=== PATIENT | female | born 1930 | race Caucasian/White ===

== ENCOUNTER 2017-02-22 11:51 | Emergency (ER) | payer MEDICARE, MEDICAID ==
[~2017-02-22] VITALS: Ht 149.8 cm; Wt 43.1 kg
[~2017-02-22 11:51] MED LIST: ACETAMINOPHEN PO; ACETAMINOPHEN-H1 TA2 PO; ACETAMINOPHEN325 M3 PO; AMITIZA8 MCG PO; AMITRIPTYLINE H10 M1 PO; ASPIRIN ADULT L81 M1 PO; ASPIRIN81 M1 PO; ATIVAN0.5 MG PO; B COMPLEX1 EACH PO; B12,B-12,B 12500 MC1 PO; BACTROBAN22 TP; CALCIUM 500 MG1 EAC1 PO; CALCIUM CARBON500 M1 PO; CEFTRIAXONE1 GM IJ; CIPRO250 MG PO; CIPRO500 MG PO; COZAAR100 MG PO; DIFLUCAN100 MG PO; DOC-Q-LAX 50 MG1 TAB PO; DOCUSATE SODIU100 M2 PO; DOXYCYCLINE50 MG PO; DULCOLAX10 M1 RC; EVISTA60 MG PO; FEROSUL325 MG PO; FERROUS SULFAT324 M1 PO; FLAGYL500 MG PO; FLOMAX0.4 MG; HYDR25T PO; HYDROCODONE BIT1 T11 PO; HYDROCODONE PO; HYDRODIURIL25 MG PO; HYDROMORPH0.5 MG/0.5 IV; LIDODERM 5% PATC1 EA PO; LINZESS290 MC1 PO; LORAZEPAM0.5 MG PO; LOW DOSE ASPIRI81 MG PO; MAPAP325 MG PO; MECLIZINE HCL25 M2 PO; MECLIZINE25 MG PO; METAMUCIL PO; MIRALAX17 GM PO; MOVANTIK12.5 MG PO; Meclizine25 MG PO; NITROFURANTOIN100 MG PO; OMEPRAZOLE20 M2 PO; OMEPRAZOLE40 MG PO; OSTEO-BI-FLEX 21 TAB PO; OXYCODONE HCL10 M1 PO; PANTOPRAZOLE SO40 MG PO; PERCOCET 325 MG1 TA2 PO; PERCOCET 325 MG1 TAB PO; PREMARIN V0.625 MG/G V; PRILOSEC20 M1; PRILOSEC20 MG PO; PROTONIX40 MG PO; PYRIDIUM200 MG PO; REGLAN10 MG PO; SENNA8.6 M2 PO; TRANSDERM0.33 MG/24 T; VERAPAMIL HCL120 MG PO; VERAPAMIL HCL40 MG PO; VIACTIV CALCIUM1 CTB PO; VICODIN 5/500 505 MG PO; ZITHROMAX500 MG IV
[2017-02-22 12:51] LABS: BASO % 0.6 % (0.0-1.0); HEMATOCRIT 38.3 % (37.0-47.0); HEMOGLOBIN 12.5 g/dl (12.0-16.0); LYMPH # 0.8 10*3/uL (1.3-4.4); MEAN CELL VOLUME 92.3 fl (81.0-99.0); MEAN CORPUSCULAR HGB 30.1 pg (27.0-31.0); MEAN CORPUSCULAR HGB CONC 32.6 g/dl (33.0-37.0); MEAN PLATELET VOLUME 9.3 fl (9.6-12.3); MONO # 0.4 10*3/uL (0.1-1.0); MONO % 5.9 % (3.0-9.0); NEUT # 5.8 10*3/uL (2.3-7.9); NEUT % 82.2 % (47.0-73.0); PLATELET COUNT AUTOMATED 238 10*3/uL (130-400); RED BLOOD COUNT 4.15 10*6/uL (4.10-5.10); RED CELL DISTRI WIDTH 12.8 % (0-14.5)
[2017-02-22 13:08] LABS: BILIRUBIN NEGATIVE (NEGATIVE); BLOOD 2+ (NEGATIVE); CLARITY CLEAR (CLEAR); COLOR YELLOW (YELLOW); GLUCOSE NEGATIVE (NEGATIVE); KETONE 1+ (NEGATIVE); LEUKO ESTERASE NEGATIVE (NEGATIVE); NITRITE NEGATIVE (NEGATIVE); PH 7.5 (5.0-9.0); SPECIFIC GRAVITY 1.015 (1.005-1.030)
[2017-02-22 13:13] LABS: BUN 11 mg/dl (7-24); CHLORIDE 104 mmol/L (98-107); CREATININE 0.62 mg/dL (0.55-1.02); POTASSIUM 3.8 mmol/L (3.5-5.1); SODIUM 140 mmol/L (136-145)
[2017-02-22 13:17] LABS: RBC 31-40 rbc/hpf (0-2)
== END 2017-02-22 13:50 ==
LOC: ED 11:51
PROVIDERS: Emergency Medicine
DX: M25.421 Effusion, right elbow (principal); R07.81 Pleurodynia; F41.9 Anxiety disorder, unspecified; J45.909 Unspecified asthma, uncomplicated; K21.9 Gastro-esophageal reflux disease without esophagitis; I10 Essential (primary) hypertension; R73.9 Hyperglycemia, unspecified; M19.90 Unspecified osteoarthritis, unspecified site; Z90.49 Acquired absence of other specified parts of digestive tract; Z90.710 Acquired absence of both cervix and uterus; Z88.0 Allergy status to penicillin; Z88.2 Allergy status to sulfonamides; Z88.8 Allergy status to other drugs, medicaments and biological substances; Z91.041 Radiographic dye allergy status; Z79.899 Other long term (current) drug therapy; Z79.82 Long term (current) use of aspirin

== ENCOUNTER 2017-07-25 02:59 | Inpatient (IN) | payer MEDICARE, MEDICAID ==
[~2017-07-25] VITALS: Ht 137.1 cm; Wt 40.5 kg
[2017-07-25] VITALS (10 sets, daily range): BP systolic 102–165; BP diastolic 51–84
[2017-07-25] MEDS ORDERED: LACTULOSE10 GM/151 PO (03:33)
[2017-07-25 03:34] LABS: BASO # 0.1 10*3/uL (0.0-0.1); BASO % 0.5 % (0.0-1.0); EOS # 0.1 10*3/uL (0.0-0.4); EOS % 0.6 % (1.0-4.0); LYMPH % 10.1 % (27.0-41.0); MEAN CORPUSCULAR HGB 30.2 pg (27.0-31.0); MEAN CORPUSCULAR HGB CONC 32.4 g/dl (33.0-37.0); MEAN PLATELET VOLUME 9.3 fl (9.6-12.3); MONO # 0.6 10*3/uL (0.1-1.0); MONO % 5.8 % (3.0-9.0); NEUT # 7.9 10*3/uL (2.3-7.9); NEUT % 82.7 % (47.0-73.0); PLATELET COUNT AUTOMATED 196 10*3/uL (130-400); RED BLOOD COUNT 3.98 10*6/uL (4.10-5.10); RED CELL DISTRI WIDTH 12.5 % (0-14.5); WHITE BLOOD COUNT 9.5 10*3/uL (4.8-10.8)
[2017-07-25] MEDS ORDERED: LASIX20 MG PO (03:34)
[2017-07-25] MEDS ORDERED: MILK OF MA400 MG/5 M PO (03:37)
[2017-07-25] MEDS ORDERED: MIRALAX17 GM PO (03:37)
[2017-07-25] MEDS ORDERED: OMEPRAZOLE20 M2 PO (03:38)
[2017-07-25] MEDS ORDERED: OXYCODONE HCL15 MG PO ×2 (03:39→11:54)
[2017-07-25] MEDS ORDERED: REMERON15 M2 PO (03:39)
[2017-07-25 03:50] LABS: ALBUMIN 2.9 gm/dl (3.1-4.5); ALKALINE PHOSPHATASE 62 U/L (45-117); BUN 19 mg/dl (7-24); CHLORIDE 106 mmol/L (98-107); CREATININE 0.62 mg/dL (0.55-1.02); LIPASE 73 U/L (73-393); POTASSIUM 3.5 mmol/L (3.5-5.1); SGOT/AST 11 IU/L (3-35); SGPT/ALT 11 U/L (12-78); SODIUM 144 mmol/L (136-145); TOTAL PROTEIN 6.4 gm/dL (6.4-8.2)
[2017-07-25 03:52] LABS: TROPONIN I < 0.015 ng/ml (<0.045)
[2017-07-25 05:12] LABS: BILIRUBIN NEGATIVE (NEGATIVE); BLOOD 1+ (NEGATIVE); CLARITY CLEAR (CLEAR); COLOR YELLOW (YELLOW); GLUCOSE NEGATIVE (NEGATIVE); KETONE NEGATIVE (NEGATIVE); LEUKO ESTERASE NEGATIVE (NEGATIVE); NITRITE NEGATIVE (NEGATIVE); PH 5.5 (5.0-9.0); UROBILINOGEN 0.2 E.U./dl (0.2-1.0)
[2017-07-25] MEDS ORDERED: ACETAMINOPHEN325 M2 PO (08:25)
[2017-07-25] MEDS ORDERED: ASPIR LOW81 MG PO (08:26)
[2017-07-25] MEDS ORDERED: ARTIFICIAL TEAR15 M1 OU (08:26)
[2017-07-25] MEDS ORDERED: ATIVAN0.5 MG PO ×2 (08:27→11:54)
[2017-07-25] MEDS ORDERED: BIOFREEZE118 ML T (08:27)
[2017-07-25] MEDS ORDERED: DOCUSATE SODIU100 M2 PO (08:28)
[2017-07-25] MEDS ORDERED: DULCOLAX10 M1 R (08:29)
[2017-07-25] MEDS ORDERED: B121000 MCG/1 IM (08:32)
[2017-07-25] MEDS ORDERED: Zofran4 MG SL (08:33)
[2017-07-25] MEDS ORDERED: DAILY VITAMIN1 EAC1 PO (08:33)
== END 2017-07-25 13:48 | DRG 641 ==
LOC: ED 02:59 → EDHOLD 05:59 → 5E 06:09
PROVIDERS: Emergency Medicine Emergency Medical Services
DX: E86.0 Dehydration (principal); E44.0 Moderate protein-calorie malnutrition; R00.1 Bradycardia, unspecified; R00.0 Tachycardia, unspecified; Z68.1 Body mass index [BMI] 19.9 or less, adult; Z51.5 Encounter for palliative care; F41.9 Anxiety disorder, unspecified; J45.909 Unspecified asthma, uncomplicated; K59.00 Constipation, unspecified; K21.9 Gastro-esophageal reflux disease without esophagitis; I10 Essential (primary) hypertension; M19.90 Unspecified osteoarthritis, unspecified site; M81.0 Age-related osteoporosis without current pathological fracture; Z66 Do not resuscitate; R42 Dizziness and giddiness; Z90.49 Acquired absence of other specified parts of digestive tract; Z90.710 Acquired absence of both cervix and uterus; Z82.49 Family history of ischemic heart disease and other diseases of the circulatory system; Z83.3 Family history of diabetes mellitus; Z79.82 Long term (current) use of aspirin; Z87.440 Personal history of urinary (tract) infections; Z79.899 Other long term (current) drug therapy; Z88.0 Allergy status to penicillin; Z88.2 Allergy status to sulfonamides; Z88.8 Allergy status to other drugs, medicaments and biological substances; Z91.041 Radiographic dye allergy status; Z82.3 Family history of stroke; Z86.73 Personal history of transient ischemic attack (TIA), and cerebral infarction without residual deficits; Z80.0 Family history of malignant neoplasm of digestive organs

== ENCOUNTER 2017-08-03 08:53 | Emergency (ER) | payer MEDICARE, MEDICAID ==
[~2017-08-03] VITALS: Ht 149.8 cm; Wt 43.1 kg
[~2017-08-03 08:53] MED LIST changes: +ACETAMINOPHEN325 M2 PO; +ARTIFICIAL TEAR15 M1 OU; +ASPIR LOW81 MG PO; +B121000 MCG/1 IM; +BIOFREEZE118 ML T; +DAILY VITAMIN1 EAC1 PO; +DULCOLAX10 M1 R; +LACTULOSE10 GM/151 PO; +LASIX20 MG PO; +MILK OF MA400 MG/5 M PO; +OXYCODONE HCL15 MG PO; +REMERON15 M2 PO; +Zofran4 MG SL
[2017-08-03 09:27] LABS: BASO # 0.1 10*3/uL (0.0-0.1); BASO % 1.1 % (0.0-1.0); EOS # 0.1 10*3/uL (0.0-0.4); EOS % 1.1 % (1.0-4.0); HEMATOCRIT 38.1 % (37.0-47.0); HEMOGLOBIN 12.3 g/dl (12.0-16.0); LYMPH % 18.5 % (27.0-41.0); MEAN CELL VOLUME 92.9 fl (81.0-99.0); MEAN CORPUSCULAR HGB CONC 32.3 g/dl (33.0-37.0); MEAN PLATELET VOLUME 9.5 fl (9.6-12.3); MONO # 0.4 10*3/uL (0.1-1.0); MONO % 7.7 % (3.0-9.0); NEUT # 3.8 10*3/uL (2.3-7.9); NEUT % 71.2 % (47.0-73.0); PLATELET COUNT AUTOMATED 236 10*3/uL (130-400); RED CELL DISTRI WIDTH 12.3 % (0-14.5); WHITE BLOOD COUNT 5.3 10*3/uL (4.8-10.8)
[2017-08-03 09:36] LABS: ACT PARTIAL THROMBO TIME 25.5 SECONDS (20.8-31.5)
[2017-08-03 09:43] LABS: ALBUMIN 3.1 gm/dl (3.1-4.5); ALKALINE PHOSPHATASE 72 U/L (45-117); BUN 9 mg/dl (7-24); CHLORIDE 99 mmol/L (98-107); CREATININE 0.61 mg/dL (0.55-1.02); POTASSIUM 3.8 mmol/L (3.5-5.1); SGOT/AST 15 IU/L (3-35); SGPT/ALT 11 U/L (12-78); SODIUM 139 mmol/L (136-145); TOTAL PROTEIN 7.1 gm/dL (6.4-8.2)
[2017-08-03 09:44] LABS: TROPONIN I < 0.015 ng/ml (<0.045)
[2017-08-03 10:13] LABS: BILIRUBIN NEGATIVE (NEGATIVE); BLOOD 1+ (NEGATIVE); CLARITY CLEAR (CLEAR); COLOR YELLOW (YELLOW); GLUCOSE NEGATIVE (NEGATIVE); KETONE 1+ (NEGATIVE); LEUKO ESTERASE 1+ (NEGATIVE); NITRITE NEGATIVE (NEGATIVE); SPECIFIC GRAVITY <= 1.005 (1.005-1.030)
[2017-08-03 10:46] LABS: BACTERIA TRACE; EPITHELIAL CELLS 0-2
== END 2017-08-03 13:20 | disposition home or self-care (01) ==
LOC: ED 08:53
PROVIDERS: Emergency Medicine
DX: R53.1 Weakness (principal); R10.32 Left lower quadrant pain; J45.909 Unspecified asthma, uncomplicated; K21.9 Gastro-esophageal reflux disease without esophagitis; I10 Essential (primary) hypertension; M19.90 Unspecified osteoarthritis, unspecified site; Z86.73 Personal history of transient ischemic attack (TIA), and cerebral infarction without residual deficits; Z79.899 Other long term (current) drug therapy; Z79.82 Long term (current) use of aspirin; Z90.49 Acquired absence of other specified parts of digestive tract; Z90.710 Acquired absence of both cervix and uterus; Z98.890 Other specified postprocedural states; Z88.0 Allergy status to penicillin; Z88.2 Allergy status to sulfonamides; Z88.8 Allergy status to other drugs, medicaments and biological substances

== ENCOUNTER 2018-03-22 23:39 | Emergency (ER) | payer MEDICARE, MEDICAID ==
[~2018-03-22] VITALS: Ht 124.4 cm; Wt 40.4 kg
[2018-03-23 00:23] LABS: BASO # 0.1 10*3/uL (0.0-0.1); BASO % 0.4 % (0.0-1.0); EOS % 0.2 % (1.0-4.0); HEMATOCRIT 39.2 % (37.0-47.0); HEMOGLOBIN 12.9 g/dl (12.0-16.0); LYMPH % 8.2 % (27.0-41.0); MEAN CELL VOLUME 94.2 fl (81.0-99.0); MEAN CORPUSCULAR HGB CONC 32.9 g/dl (33.0-37.0); MEAN PLATELET VOLUME 9.4 fl (9.6-12.3); MONO # 0.7 10*3/uL (0.1-1.0); MONO % 6.1 % (3.0-9.0); NEUT # 10.2 10*3/uL (2.3-7.9); NEUT % 84.9 % (47.0-73.0); PLATELET COUNT AUTOMATED 236 10*3/uL (130-400); RED BLOOD COUNT 4.16 10*6/uL (4.10-5.10); RED CELL DISTRI WIDTH 13.7 % (0-14.5)
[2018-03-23 00:40] LABS: ALBUMIN 2.7 gm/dl (3.1-4.5); ALKALINE PHOSPHATASE 82 U/L (45-117); BUN 14 mg/dl (7-24); CHLORIDE 98 mmol/L (98-107); POTASSIUM 3.8 mmol/L (3.5-5.1); SGOT/AST 14 IU/L (3-35); SGPT/ALT 13 U/L (12-78); SODIUM 137 mmol/L (136-145); TOTAL PROTEIN 6.6 gm/dL (6.4-8.2)
[2018-03-23 04:18] LABS: BILIRUBIN NEGATIVE (NEGATIVE); BLOOD 1+ (NEGATIVE); CLARITY SL CLOUDY (CLEAR); COLOR YELLOW (YELLOW); GLUCOSE NEGATIVE (NEGATIVE); KETONE 3+ (NEGATIVE); LEUKO ESTERASE NEGATIVE (NEGATIVE); NITRITE NEGATIVE (NEGATIVE); SPECIFIC GRAVITY 1.025 (1.005-1.030); UROBILINOGEN 0.2 E.U./dl (0.2-1.0)
[2018-03-23 04:26] LABS: BACTERIA TRACE; HYALINE CAST 0-2; MUCOUS TRACE; RBC 16-20 rbc/hpf (0-2); WBC 0-2 wbc/hpf (0-5)
== END 2018-03-23 06:26 | disposition home or self-care (01) ==
LOC: ED 23:39
PROVIDERS: Emergency Medicine
DX: R53.1 Weakness (principal); E86.0 Dehydration; R50.9 Fever, unspecified; R53.81 Other malaise; J45.909 Unspecified asthma, uncomplicated; K21.9 Gastro-esophageal reflux disease without esophagitis; I10 Essential (primary) hypertension; Z88.0 Allergy status to penicillin; Z88.2 Allergy status to sulfonamides; Z88.8 Allergy status to other drugs, medicaments and biological substances; Z91.041 Radiographic dye allergy status; Z79.899 Other long term (current) drug therapy; Z79.82 Long term (current) use of aspirin; Z90.49 Acquired absence of other specified parts of digestive tract; Z90.710 Acquired absence of both cervix and uterus